=== PATIENT | female | born 1995 | race Caucasian/White ===

== ENCOUNTER 2022-04-15 10:18 | Emergency (ER) | payer MEDICAID, SELFPAY ==
[2022-04-15] VITALS (19 sets, daily range): BP systolic 136–170; BP diastolic 83–132; PULSE 73–74; RESP 16–17; TEMP 36.1; O2SAT 77–100
--- NOTE | 2022-04-15 11:30 | PC.PHAR ---
pt states she takes care of her own medications-pt states she stop taking her metformin 500mg bid filled 30d/s 2 weeks ago pt states it was making her sick-notes are made in the pharmacy comments
--- NOTE | 2022-04-15 11:34 | W.ED.ABDPA2 ---
HPI - Abdominal Pain General: Chief Complaint: Abdominal Pain Stated Complaint: n/v Time Seen by Provider: 04/15/22 11:00 Source: patient and family Mode of arrival: ambulatory Limitations: no limitations History of Present Illness: Patient is a 27-year-old female presents to ED today with a complaint of diffuse abdominal pain, nausea, and vomiting. Patient states she has had identical symptoms several times in the past. Family states it is like clockwork that she will have a similar episode every 3 to 4 weeks. Patient has been seen numerous times in the past other facilities for symptoms-causes never been identified. She is not having any bloody emesis. No changes in her bowel movements. Of note patient states she does habitually smoke marijuana daily and has been for years . MD elicited complaint: abdominal pain Onset (ago): hour(s) Pain Consistency: constant Location: Diffuse Severity: severe Quality: cramping Radiation: none Migration to: no migration Exacerbating factors: nothing Relieving factors: nothing Associated Symptoms: Reports nausea and vomiting; Denies change in bowel habits, chills, dysuria, fever(s) and hematemesis Related Data: Patient : No Review of Systems Const: Denies: fever(s), chills, body aches, fatigue or malaise Card: Denies: chest pain Resp: Denies: dyspnea GI: Reports: abdominal pain, nausea and vomiting; Denies: hematemesis or change in bowel habits : Denies: flank pain, difficulty voiding, dysuria, urinary frequency, urinary urgency or urinary hesitancy Musc: Denies: neck pain, back pain, extremity pain or joint pain Skin/Breast: Denies: rash Neuro: Denies: headache(s), numbness in extremities, weakness in extremities, sensory changes or dizziness Physical Exam Const: COMMON NORMALS: patient oriented x3, no limitations and alert GENERAL APPEARANCE: cooperative and in distress (secondary to diffuse abdominal pain) NUTRITIONAL APPEARANCE: obese morbidly obese HENMT: COMMON NORMALS: normocephalic and atraumatic HEAD & SCALP: normal to inspection, normocephalic and atraumatic Resp: COMMON NORMALS: normal respiratory effort and clear to auscultation bilaterally AUSCULTATION: clear to auscultation bilaterally Cardio: COMMON NORMALS: regular rate and regular rhythm RATE: regular rate RHYTHM: regular rhythm GI: COMMON NORMALS: Normal to inspection, nondistended, normoactive bowel sounds present, Soft to palpation, No hepatosplenomegaly present and no masses INSPECTION: Yes normal to inspection AUSCULTATION: Yes normoactive bowel sounds PALPATION: Yes Soft to palpation, Yes Tenderness to palpation present (GI), No Guarding due to palpation present (GI), No Rigid due to palpation and Yes No hepatosplenomegaly present OTHER: exam limited by body habitus : COMMON NORMALS: Yes no CVA tenderness BLADDER/KIDNEY EXAM: Yes no CVA tenderness Back/Pelvis: COMMON NORMALS: no CVA tenderness Extremity: COMMON NORMALS: normal to inspection GENERAL: Yes normal exam except as noted Neuro: HAVEN COMA SCALE: document GCS findings [place] coma scale eye opening: Spontaneous [place] coma scale verbal response: Orientated [place] coma scale motor response: Obey commands Desdemona coma scale total score: 15 COMMON NORMALS: patient oriented x3, moves all extremities, no focal motor deficits and no sensory deficits noted SENSORIUM/ORIENTATION: Yes alert Skin: COMMON NORMALS: no rashes or lesions noted GENERAL SKIN EXAM: no rashes or lesions noted Course Vital Signs: Vital signs: Vital Signs Temperature 96.9 F L 04/15/22 10:25 Pulse Rate 74 04/15/22 10:25 Respiratory Rate 16 04/15/22 10:25 Blood Pressure 136/90 04/15/22 13:00 Pulse Oximetry 98 04/15/22 13:00 MDM - Abdominal Pain Medical Decision Making According to patient history she has had multiple identical previous episodes. Clinically patient appeared very similar to previous patients I have treated with cannabinoid hyperemesis syndrome. Given her history of daily habitual marijuana use for years this most likely is the etiology for her symptoms. Vital signs upon arrival were stable apart from hypertension. This resolved during her stay. Patient states her abdominal pain is much improved after IV fluids, Haldol, Ativan, and Zofran. Blood work is unremarkable. I do not feel the need for emergent CT imaging based on her history. Patient's abdomen is nonsurgical on exam. Recommend she follow-up with her primary care provider. Marijuana cessation discussed. Lab Data 04/15/22 12:15 04/15/22 12:15 Labs/Radiology: Laboratory Results WBC 8.8 10^3/uL (4.0-10.0) 04/15/22 12:15 RBC 5.69 10^6/uL (4.1-5.3) H 04/15/22 12:15 Hgb 15.8 g/dL (11.5-15.3) H 04/15/22 12:15 Hct 48.2 % (37.0-47.0) H 04/15/22 12:15 MCV 84.7 fl (81-99) 04/15/22 12:15 MCH 27.8 pg (28.0-34.0) L 04/15/22 12:15 MCHC 32.8 g/dL (30.0-36.0) 04/15/22 12:15 RDW 14.6 % (12.1-15.1) 04/15/22 12:15 Plt Count 211 10^3/cmm (130-400) 04/15/22 12:15 MPV 12.3 fL (7.4-10.4) H 04/15/22 12:15 Neut % (Auto) 90.0 % 04/15/22 12:15 Lymph % (Auto) 8.3 % 04/15/22 12:15 [place] % (Auto) 1.4 % 04/15/22 12:15 Eos % (Auto) 0.0 % 04/15/22 12:15 Baso % (Auto) 0.1 % 04/15/22 12:15 Neut # (Auto) 7.95 10^3/uL (1.8-7.7) H 04/15/22 12:15 Lymph # (Auto) 0.7 10^3/uL (0.8-4.8) L 04/15/22 12:15 [place] # (Auto) 0.1 10^3/uL (0.2-0.9) L 04/15/22 12:15 Eos # (Auto) 0.0 10^3/uL (0.0-0.8) 04/15/22 12:15 Baso # (Auto) 0.0 10^3/uL (0.0-0.1) 04/15/22 12:15 Nucleated RBC % (auto) 0 % 04/15/22 12:15 Nucleated RBCs # 0.0 /100WBC 04/15/22 12:15 Sodium 136 mmol/L (136-145) 04/15/22 12:15 Potassium 4.3 mmol/L (3.5-5.1) 04/15/22 12:15 Chloride 101 mmol/L (98-107) 04/15/22 12:15 Carbon Dioxide 24 mmol/L (22-29) 04/15/22 12:15 Anion Gap 15.3 (5-19) 04/15/22 12:15 BUN 12 mg/dL (6-20) 04/15/22 12:15 Creatinine 0.7 mg/dL (0.5-0.9) 04/15/22 12:15 GFR Calculation 101.1 mL/min (90-130) 04/15/22 12:15 Glucose 149 mg/dL (65-115) H 04/15/22 12:15 Calculated Osmolality 285 mOsm/kg (285-295) 04/15/22 12:15 Calcium 9.1 mg/dL (8.5-10.5) 04/15/22 12:15 Total Bilirubin 0.3 mg/dL (0.15-1.2) 04/15/22 12:15 AST 17 U/L (0-32) 04/15/22 12:15 ALT 16 U/L (0-33) 04/15/22 12:15 Alkaline Phosphatase 77 U/L (35-105) 04/15/22 12:15 Total Protein 7.4 g/dL (6.6-8.7) 04/15/22 12:15 Albumin 4.3 g/dL (3.5-5.2) 04/15/22 12:15 Globulin 3.1 g/dL (1.3-4.6) 04/15/22 12:15 Lipase 11 U/L (13-60) L 04/15/22 12:15 HCG, Qual Negative (Negative) 04/15/22 12:15 Discharge Plan Discharge Patient Disposition: Home Clinical Impression: Cannabinoid hyperemesis syndrome Condition: Stable Prescriptions: Continued ondansetron 4 mg tablet,disintegrating 4 mg PO Q6H PRN (Reason: Nausea And Vomiting) Qty: 10 0RF No Action metformin 500 mg tablet 500 mg PO BID Promethegan 25 mg suppository 25 mg GA Q8H PRN (Reason: Nausea And Vomiting) spironolactone 25 mg tablet 25 mg PO BID dicyclomine 20 mg tablet 20 mg PO Q8H Rx Instructions: for 7 days Prozac 20 mg capsule 20 mg PO DAILY drospirenone-ethinyl estradiol 3-0.03 mg tablet 1 tab PO DAILY Discharge Orders: Discharge ED (Routine); Ordered 04/15/22 Ordered By: Arabella Martin Referrals: Oliva Ruano NP [Primary Care Provider] - Patient Instructions: Cannabis Use Disorder (ED) Coding Level of Care Code ED [employer] for Юлия Anderson
[2022-04-15] MEDS: sodium chloride 0.9% 1,000 ML 999 ML IV (12:15)
[2022-04-15] MEDS: haloperidol inj 5 mg/mL INJ 1 mL IVP (12:16)
[2022-04-15] MEDS: LORazepam 2 mg/mL INJ 1 mL IVP (12:16)
[2022-04-15] MEDS: ondansetron 2 mg/ML SDV 2 mL 4 MG IVP (12:16)
[2022-04-15 12:21] LABS: Basophils % 0.1 %; Hematocrit 48.2 % (37.0-47.0); Hemoglobin 15.8 g/dL (11.5-15.3); Lymphocytes # 0.7 10^3/uL (0.8-4.8); Lymphocytes % 8.3 %; Mean Corpuscular HGB Conc 32.8 g/dL (30.0-36.0); Mean Corpuscular Hemoglobin 27.8 pg (28.0-34.0); Mean Corpuscular Volume 84.7 fl (81-99); Mean Platelet Volume 12.3 fL (7.4-10.4); Monocytes # 0.1 10^3/uL (0.2-0.9); Monocytes % 1.4 %; Neutrophils # 7.95 10^3/uL (1.8-7.7); Nucleated Red Blood Cells % 0 %; Platelet Count 211 10^3/cmm (130-400); Red Blood Count 5.69 10^6/uL (4.1-5.3); Red Cell Distribution Width 14.6 % (12.1-15.1); White Blood Count 8.8 10^3/uL (4.0-10.0)
[2022-04-15 12:43] LABS: Alanine Aminotransferase 16 U/L (0-33); Albumin Level 4.3 g/dL (3.5-5.2); Alkaline Phosphatase 77 U/L (35-105); Anion Gap 15.3 (5-19); Aspartate Amino Transferase 17 U/L (0-32); Blood Urea Nitrogen 12 mg/dL (6-20); Calcium 9.1 mg/dL (8.5-10.5); Carbon Dioxide 24 mmol/L (22-29); Chloride 101 mmol/L (98-107); Globulin 3.1 g/dL (1.3-4.6); Glomerular Filtration Rate 101.1 mL/min (90-130); Glucose 149 mg/dL (65-115); Lipase 11 U/L (13-60); Osmolality Calculated 285 mOsm/kg (285-295); Potassium 4.3 mmol/L (3.5-5.1); Sodium 136 mmol/L (136-145); Total Bilirubin 0.3 mg/dL (0.15-1.2); Total Protein 7.4 g/dL (6.6-8.7)
[2022-04-15 12:50] LABS: HCG, Serum Qual Negative (Negative)
[2022-04-15] MEDS: promethazine 25 mg/mL SDV 1 mL IM (13:28)
[2022-04-15] MEDS: ketorolac 30 mg/mL INJ IVP (13:28)
== END 2022-04-15 14:08 | disposition home or self-care (01) ==
PROVIDERS: Emergency Provider Physician Assistant; PCP Nurse Practitioner Family
DX: R11.2 Nausea with vomiting, unspecified (principal); F12.90 Cannabis use, unspecified, uncomplicated; Z79.84 Long term (current) use of oral hypoglycemic drugs
CPT/HCPCS: 80053; 83690; 84703; 85025; 96361; 96372; 96374; 96375; 99284; J1630; J1885; J2060; J2405; J2550; J7030